=== PATIENT | female | born 1965 | race African-American/Black ===

== ENCOUNTER 2017-02-19 20:27 | Emergency (ER) | payer OTHER ==
[2017-02-19] VITALS (7 sets, daily range): BP systolic 149–207; BP diastolic 87–124; PULSE 63–78; RESP 16–18; TEMP 98.1; O2SAT 97–99
[~2017-02-19] VITALS: Ht 180.3 cm; Wt 80.0 kg
[~2017-02-19 20:27] MED LIST: AMLO5 PO; CARV12.5 PO; CEFU1TAB43 PO; CLON.2 PO; ECOT81TA2 PO; LISI-363 PO; MAXZ25 PO
[2017-02-19] MEDS ORDERED: SODIUM CHLOR 0.9% 1000 ML INJ 1,000 ML IV SCH (20:40)
[2017-02-19] MEDS ORDERED: EPINEPHrine HCL (1:1000) 1 MG/ML VIAL IM ONE (20:45)
[2017-02-19] MEDS ORDERED: methylPREDNISolone SOD SUCC 125 MG/2 ML VIAL IVP ONE (20:45)
[2017-02-19] MEDS ORDERED: SODIUM CHLORIDE 0.9% FLUSH 10 ML FLUSH IV FLUSH PRN (20:45)
[2017-02-19] MEDS ORDERED: diphenhydrAMINE HCL 50 MG/ML VIAL IVP ONE (20:45)
[2017-02-19] MEDS ORDERED: FAMOTIDINE 20 MG/2 ML VIAL IV PUSH ONE (20:45)
--- NOTE | 2017-02-19 20:45 | PD ---
HPI Chief Complaint: Allergic/Adverse Reaction Time Seen by Provider: 20:40 Travel History International Travel<30 days: No Contact w/Intl Traveler<30days: No Traveled to known affect area: No History of Present Illness HPI The patient is a 51-year-old [place] female who presents emergency Department for swelling of the lower lip that started approximately 2 PM. The patient states she developed swollen of the lower lip and also feels like there is swelling in the left posterior aspect of her throat. The patient denies any difficulty swallowing, shortness breath, chest pain, itching, or rash. The patient does take lisinopril for her high blood pressure, has been taking the lisinopril for 2 years. She denies any history of chronic allergic reactions, does have a previous allergy to sulfa. The patient's primary physician is Dr. Bush. [facility] Past Medical History Narrative Medical I blood pressure, chronic neck and shoulder pain Autoimmune Disease: No Cancer: No Cardiovascular Problems: No Diabetes: No Diminished Hearing: No Endocrine: No Genitourinary: No Hypertension: Yes Immune Disorder: No Implanted Vascular Access Dvce: No Musculoskeletal: No Neurologic: No Psychiatric: No Reproductive: No Respiratory: No Immunizations Current: Yes Renal Failure: Yes Thyroid Disease: No Past Surgical History Abdominal Surgery: No Cardiac Surgery: No Ear Surgery: No Endocrine Surgery: No Eye Surgery: No Genitourinary Surgery: No Gynecologic Surgery: Yes (hysterectomy (approx 10+ yrs ago)) Hysterectomy: Yes Oral Surgery: No Thoracic Surgery: No Social History Alcohol Use: Yes (beer everyday) Tobacco Use: Yes (1-2 cig per day ) Substance Use: No Allergies-Medications (Allergen,Severity, Reaction): Coded Allergies: ALPESH Inhibitors (Verified Allergy, Severe, 02/19/17) Sulfa (Verified Allergy, Severe, HIVES, 02/19/17) Reported Meds & Prescriptions Reported Meds & Active Scripts Active Reported Lisinopril 20 Mg Tab 20 Mg PO DAILY Amlodipine (Amlodipine Besylate) 5 Mg Tab 5 Mg PO DAILY Tramadol (Tramadol HCl) 50 Mg Tab 50 Mg PO Q6H PRN Gabapentin 400 Mg Cap 300 Cap PO HS Meloxicam 7.5 Mg Tab 7.5 Mg PO DAILY Carvedilol 12.5 Mg Tab 12.5 Mg PO BID Review of Systems Except as stated in HPI: all other systems reviewed are Neg HENT: Positive: Neck Pain (complains of swelling in the posterior left neck), Other (lower lip swelling), No: Lightheadedness Cardiovascular: No: Chest Pain or Discomfort Respiratory: No: Shortness of Breath Gastrointestinal: No: Nausea, Vomiting, Abdominal Pain Musculoskeletal: No: Edema Skin: No Rash Physical Exam Narrative GENERAL: Awake, alert, pleasant 51-year-old female who appears her stated age and is in no acute respiratory distress. SKIN: Focused skin assessment warm/dry. HEAD: Atraumatic. Normocephalic. EYES: Pupils equal and round. No scleral icterus. No injection or drainage. ENT: No nasal bleeding or discharge. The patient has angioedema of the lower lid. The tongue and uvula appear normal. No obvious edema in the posterior oropharynx. NECK: Trachea midline. No JVD. No significant swelling noted on physical examination. CARDIOVASCULAR: Regular rate and rhythm. No murmur appreciated. RESPIRATORY: No accessory muscle use. Clear to auscultation. Breath sounds equal bilaterally. GASTROINTESTINAL: Abdomen soft, non-tender, nondistended. MUSCULOSKELETAL: No obvious deformities. No clubbing. No cyanosis. No edema. NEUROLOGICAL: Awake and alert. No obvious cranial nerve deficits. Motor grossly within normal limits. Normal speech. PSYCHIATRIC: Slightly anxious. Data Data Last Documented VS Vital Signs Date Time Temp Pulse Resp B/P Pulse Ox O2 Delivery O2 Flow Rate FiO2 02/20/17 03:02 68 18 127/91 98 Room Air 02/19/17 20:40 98.1 Orders Ecg Monitoring (02/19/17 20:40) Iv Access Insert/Monitor (02/19/17 20:40) Oximetry (02/19/17 20:40) Diphenhydramine Inj (Benadryl Inj) (02/19/17 20:45) Methylprednisolone So Succ Inj (Solumedr (02/19/17 20:45) Famotidine Inj (Pepcid Inj) (02/19/17 20:45) Sodium Chlor 0.9% 1000 Ml Inj (Ns 1000 M (02/19/17 20:40) Sodium Chloride 0.9% Flush (Ns Flush) (02/19/17 20:45) Epinephrine (1:1000) Inj (Adrenalin (1:1 (02/19/17 20:45) Hydralazine Inj (Apresoline Inj) (02/19/17 21:45) [facility] Medical Decision Making Medical Screen Exam Complete: Yes Emergency Medical Condition: Yes Medical Record Reviewed: Yes Differential Diagnosis Differential diagnosis includes angioedema, medication side effect secondary to lisinopril, allergic reaction, anaphylaxis, C1 esterase deficiency. Narrative Course IV was established, labs are drawn and sent, and the patient was placed on cardiac telemetry monitoring and continuous pulse oximetry monitoring. The patient was administered epinephrine 0.3 mg IM, Solu-Medrol 125 g intravenously , Benadryl 50 mg intravenously, and Pepcid 20 mg intravenously. The patient was placed on IV fluids and monitored in the emergency department. The patient was monitored in the emergency department until 5 AM, was checked multiple times , her angioedema did not progress, appeared to be improved at 5 AM, the patient was subsequently discharged home. She is advised to never take an ALPESH inhibitor again. Diagnosis Primary Impression: Angioedema of lips Qualified Code: T78.3XXA - Angioedema of lips, initial encounter Patient Instructions: General Instructions Additional Instructions: Stop the ALPESH inhibitor, do not take the lisinopril. Return if symptoms worsen or progress. Follow-up with your primary physician. Med/Other Pt SpecificInfo: Med Stopped (stop your lisinopril, never take another ALPESH inhibitor again) Disposition: 01 DISCHARGE HOME Condition: Stable Silverio Boyer MD February 19, 2017 20:45
[2017-02-19] MEDS ORDERED: MELO7.5T4 PO (20:52)
[2017-02-19] MEDS ORDERED: CARV12.52 PO (20:52)
[2017-02-19] MEDS ORDERED: GABA400C5 PO (20:53)
[2017-02-19] MEDS ORDERED: TRAM50TA PO (20:53)
[2017-02-19] MEDS ORDERED: LISI-515 PO (20:54)
[2017-02-19] MEDS ORDERED: AMLO5TAB2 PO (20:54)
[2017-02-19] MEDS ORDERED: hydrALAZINE HCL 20 MG/ML VIAL IV PUSH ONE (21:45)
[2017-02-20 03:02] VITALS: BP 127/91; PULSE 68; RESP 18; O2SAT 98
== END 2017-02-20 05:19 | disposition home or self-care (01) ==
LOC: NEPE 20:27
DX: T78.3XXA Angioneurotic edema, initial encounter (principal); I12.9 Hypertensive chronic kidney disease with stage 1 through stage 4 chronic kidney disease, or unspecified chronic kidney disease; N18.9 Chronic kidney disease, unspecified; Z72.0 Tobacco use
CPT/HCPCS: 96361; 96372; 96374; 96375; 99284; J0171; J0360; J1200; J2930; J7030

== ENCOUNTER 2017-12-30 10:20 | Emergency (ER) | payer BC, OTHER ==
[~2017-12-30 10:20] MED LIST changes: -AMLO5 PO; +AMLO5TAB2 PO; -CARV12.5 PO; +CARV12.52 PO; -CEFU1TAB43 PO; -CLON.2 PO; -ECOT81TA2 PO; +GABA400C5 PO; -LISI-363 PO; +LISI-515 PO; -MAXZ25 PO; +MELO7.5T27 PO; +TRAM50TA PO
[2017-12-30 10:27] VITALS: BP 175/115; PULSE 65; RESP 16; TEMP 98.2; O2SAT 98
[2017-12-30] MEDS ORDERED: BACL10TA PO (11:33)
[2017-12-30] MEDS ORDERED: CLON0.1T PO ×2 (11:33→11:44)
[2017-12-30] MEDS ORDERED: METH8TAB3 PO (11:33)
[2017-12-30 11:35] VITALS: BP 166/113; PULSE 68; RESP 18; O2SAT 98
[2017-12-30] MEDS ORDERED: MELO15TA20 PO (11:44)
[2017-12-30] MEDS ORDERED: ORPH100T2 PO (11:44)
[2017-12-30] MEDS ORDERED: CARV12.52 PO (11:44)
[2017-12-30] MEDS ORDERED: TRAM50TA PO ×2 (11:44→11:51)
[2017-12-30] MEDS ORDERED: AMLO10TA2 PO (11:44)
[2017-12-30] MEDS ORDERED: GABA600T PO (11:44)
[2017-12-30] MEDS ORDERED: KETOROLAC TROMETHAMINE 60 MG/2 ML (IM) VIAL IM ONE (11:45)
[2017-12-30] MEDS ORDERED: ORPHENADRINE INJ 60 MG/2 ML AMP IM ONE (11:45)
--- NOTE | 2017-12-30 11:50 | PD ---
HPI Chief Complaint: Hypertension Time Seen by Provider: 11:28 Travel History International Travel<30 days: No Contact w/Intl Traveler<30days: No Traveled to known affect area: No History of Present Illness HPI 52-year-old -[place] female presents emergency department with ongoing cervical neck pain with radiation and radicular pain into the left arm and shoulder. She also is here with concerns about her high blood pressure. Patient has been going to pain management, but states her pain is worse in the last several days, and they would not refill her meds until seen in follow-up. Patient has also been out of her blood pressure medications, and is concerned about her hypertension being worse. Pain in the neck is currently 8 out of 10 and worsening over the past several days. She denies weakness in the upper extremities. She states she has had MRI showing multiple levels of degenerative disc disease and a herniated disc at the C7-T1 level with bulging to the left. Patient's current meds include carvedilol, amlodipine, clonidine, baclofen, meloxicam, Neurontin, and tramadol. Patient is allergic to sulfa, and ALPESH inhibitors. PFSH Past Medical History Autoimmune Disease: No Cancer: No Cardiovascular Problems: No Diabetes: No Diminished Hearing: No Endocrine: No Genitourinary: No Hypertension: Yes Immune Disorder: No Implanted Vascular Access Dvce: No Musculoskeletal: Yes (CHRONIC NECK PAIN) Neurologic: No Psychiatric: No Reproductive: No Respiratory: No Immunizations Current: Yes Renal Failure: Yes Thyroid Disease: No ?: Not : 2 Para: 2 Past Surgical History Abdominal Surgery: No Cardiac Surgery: No Ear Surgery: No Endocrine Surgery: No Eye Surgery: No Genitourinary Surgery: No Gynecologic Surgery: Yes (hysterectomy (approx 10+ yrs ago)) Hysterectomy: Yes (TOTAL) Oral Surgery: No Thoracic Surgery: No Other Surgery: Yes Social History Alcohol Use: No Tobacco Use: Yes (3-4 cig per day ) Substance Use: No Allergies-Medications (Allergen,Severity, Reaction): Coded Allergies: Sulfa (Sulfonamide Antibiotics) (Unverified Allergy, Severe, HIVES, ) benazepril (Unverified Allergy, Severe, 05/06/17) captopril (Unverified Allergy, Severe, 05/06/17) enalaprilat (Unverified Allergy, Severe, 05/06/17) fosinopril (Unverified Allergy, Severe, 05/06/17) lisinopril (Unverified Allergy, Severe, 05/06/17) quinapril (Unverified Allergy, Severe, 05/06/17) Reported Meds & Prescriptions Reported Meds & Active Scripts Active Tramadol (Tramadol HCl) 50 Mg Tab 50 Mg PO Q6H PRN Carvedilol 12.5 Mg Tab 12.5 Mg PO BID Gabapentin 600 Mg Tab 600 Mg PO TID Meloxicam 15 Mg Tab 15 Mg PO DAILY Clonidine (Clonidine HCl) 0.1 Mg Tab 0.1 Mg PO BID PRN Orphenadrine CR (Orphenadrine Citrate) 100 Mg Tab 100 Mg PO Q12HR Amlodipine (Amlodipine Besylate) 10 Mg Tab 10 Mg PO DAILY Reported Methylprednisolone 8 Mg Tab 4 Mg PO DAILY Baclofen 10 Mg Tab 10 Mg PO TID Clonidine (Clonidine HCl) 0.1 Mg Tab 0.1 Mg PO BID Amlodipine (Amlodipine Besylate) 5 Mg Tab 5 Mg PO DAILY Tramadol (Tramadol HCl) 50 Mg Tab 50 Mg PO Q6H PRN Gabapentin 400 Mg Cap 600 Cap PO TID Meloxicam 7.5 Mg Tab 7.5 Mg PO DAILY Carvedilol 12.5 Mg Tab 25 Mg PO BID Review of Systems Except as stated in HPI: all other systems reviewed are Neg General / Constitutional: No: Fever Eyes: No: Visual changes HENT: Positive: Neck Stiffness, Neck Pain, No: Headaches, Vertigo, Lightheadedness, Sore Throat, Rhinitis, Rhinorrhea, Congestion, Nosebleed, Masses, Gingival Bleeding, Dental Difficulties, Ear Discharge, Earache Cardiovascular: No: Chest Pain or Discomfort Respiratory: No: Cough, Shortness of Breath Gastrointestinal: No: Nausea, Vomiting, Diarrhea, Abdominal Pain Genitourinary: No: Dysuria Musculoskeletal: Positive: Myalgias, Arthralgias, Limited ROM, Pain Skin: No Rash Neurologic: No: Weakness Psychiatric: No: Depression Endocrine: No: Polydipsia Hematologic/Lymphatic: No: Easy Bruising Physical Exam Narrative GENERAL: Patient appears in mild to moderate distress per SKIN: Warm and dry. Normal color. Normal turgor. No rash. HEAD: Atraumatic. Normocephalic. EYES: Pupils equal and round. No scleral icterus. No injection or drainage. ENT: No nasal bleeding or discharge. Mucous membranes pink and moist. Pharynx is clear. Airways patent NECK: Trachea midline. Patient has soft tissue tenderness and spasm on the left cervical with spasm noted into the upper trapezius region. Patient has no specific bony tenderness or step-off appreciated. CARDIOVASCULAR: Regular rate and rhythm. No murmurs gallops or rubs. RESPIRATORY: No accessory muscle use. Clear to auscultation. Breath sounds equal bilaterally. MUSCULOSKELETAL: Extremities without clubbing, cyanosis, or edema. No obvious deformities. NEUROLOGICAL: Awake and alert. No obvious cranial nerve deficits. Motor grossly within normal limits. Five out of 5 muscle strength in the arms and legs. Normal speech. PSYCHIATRIC: Appropriate mood and affect; insight and judgment normal. Data Data Last Documented VS Vital Signs Date Time Temp Pulse Resp B/P (MAP) Pulse Ox O2 Delivery O2 Flow Rate FiO2 12/30/17 11:35 68 18 166/113 (130) 98 Room Air 12/30/17 10:27 98.2 Orders Orders Ketorolac Inj (Toradol Inj) (12/30/17 11:45) Orphenadrine Inj (Norflex Inj) (12/30/17 11:45) Apply Cervical Collar (12/30/17 11:58) MDM Medical Decision Making Medical Screen Exam Complete: Yes Emergency Medical Condition: Yes Medical Record Reviewed: Yes Differential Diagnosis Acute on chronic cervical neck pain. Hypertension. Muscle spasm radiculopathy. Narrative Course Labs are not felt warranted based on my history and physical. Radiographic imaging is not felt warranted based on my current history and physical. Patient is given Norflex 60 mg IM as well as Toradol 60 mg IM. Patient is placed in a soft cervical collar for comfort. Patient is to discontinue her baclofen, and start Norflex 100 mg twice daily as needed muscle spasm #60. Patient is to increase her amlodipine to 10 mg daily #30. Patient is given a refill of her clonidine 1 mg up to twice daily as needed hypertension. #60 Patient is going to increase her meloxicam to 15 mg daily #30. Patient is given a refill of her gabapentin 600 mg 3 times daily #90. Patient is given a refill of her carvedilol 12.5 mg twice daily #60. Patient is given tramadol 50 mg every 6 hours as needed breakthrough pain #20. Patient is to follow with her pain management and primary care physician as discussed. Patient can return if symptoms worsen as needed. Diagnosis Primary Impression: Cervical radiculopathy, chronic Additional Impressions: Hypertension Qualified Codes: I10 - Essential (primary) hypertension Medication refill Patient Instructions: 2 Gram Sodium Diet (GEN), Acute Neck Pain (ED), General Instructions, Spasmodic Torticollis (ED) Additional Instructions: Labs are not felt warranted based on my history and physical. Radiographic imaging is not felt warranted based on my current history and physical. Patient is given Norflex 60 mg IM as well as Toradol 60 mg IM. Patient is placed in a soft cervical collar for comfort. Patient is to discontinue her baclofen, and start Norflex 100 mg twice daily as needed muscle spasm #60. Patient is to increase her amlodipine to 10 mg daily #30. Patient is given a refill of her clonidine 1 mg up to twice daily as needed hypertension. #60 Patient is going to increase her meloxicam to 15 mg daily #30. Patient is given a refill of her gabapentin 600 mg 3 times daily #90. Patient is given a refill of her carvedilol 12.5 mg twice daily #60. Patient is given tramadol 50 mg every 6 hours as needed breakthrough pain #20. Patient is to follow with her pain management and primary care physician as discussed. Patient can return if symptoms worsen as needed. Scripts Tramadol (Tramadol) 50 Mg Tab 50 MG PO Q6H Y for PAIN, #20 TAB 0 Refills Prov: Silverio Boyer MD 12/30/17 Carvedilol (Carvedilol) 12.5 Mg Tab 12.5 MG PO BID, #60 TAB 0 Refills Prov: Gris Turner MD 12/30/17 Gabapentin (Gabapentin) 600 Mg Tab 600 MG PO TID, #90 TAB 0 Refills Prov: Gris Turner MD 12/30/17 Meloxicam (Meloxicam) 15 Mg Tab 15 MG PO DAILY for Arthritis Pain, #30 TAB 0 Refills Prov: Gris Turner MD 12/30/17 Clonidine (Clonidine) 0.1 Mg Tab 0.1 MG PO BID Y for SBP> OR = 180, DBP> OR = 100, #60 TAB 0 Refills Prov: Gris Turner MD 12/30/17 Orphenadrine ER 12 HR (Orphenadrine CR) 100 Mg Tab 100 MG PO Q12HR for Muscle Spasm, #60 TAB 0 Refills Prov: Gris Turner MD 12/30/17 Amlodipine (Amlodipine) 10 Mg Tab 10 MG PO DAILY for Blood Pressure Management, #30 TAB 0 Refills Prov: Gris Turner MD 12/30/17 Disposition: 01 DISCHARGE HOME Condition: Stable Darrel Cleveland Dec 30, 2017 11:50
== END 2017-12-30 13:12 | disposition home or self-care (01) ==
LOC: NEPD 10:20
DX: M54.12 Radiculopathy, cervical region (principal); I12.9 Hypertensive chronic kidney disease with stage 1 through stage 4 chronic kidney disease, or unspecified chronic kidney disease; N18.9 Chronic kidney disease, unspecified; G89.29 Other chronic pain; M54.2 Cervicalgia; F17.210 Nicotine dependence, cigarettes, uncomplicated; Z76.0 Encounter for issue of repeat prescription
CPT/HCPCS: 96372; 99283; J1885; J2360; L0120